=== PATIENT | female | born 1960 | race Caucasian/White ===

== ENCOUNTER 2018-08-12 08:37 | Observation (INO) | payer OTHER ==
[2018-08-12] MEDS ORDERED: NS 1,000 ML IV ONE ×2 (08:51→10:37)
[2018-08-12] MEDS ORDERED: PROMETHAZINE HCL 25 MG/ML INJ IVP ONE (08:51)
[2018-08-12] MEDS ORDERED: KETOROLAC 30 MG/1 ML SDV IVP ONE (08:51)
--- NOTE | 2018-08-12 08:51 | EDPHY ---
H & P Stated Complaint: r flank and rlq abd pain x 4 days Time Seen by Provider: 08/12/18 08:48 HPI/ROS: HPI: This is a 58-year-old female who presents with Chief Complaint: r flank and rlq abd pain x 4 days Location: Right flank and right lower quadrant abdominal Quality: Pain Duration: 4 days Signs and Symptoms: no fever, + nausea, no vomiting, no hematemesis, no blood in stool, no abdominal bloating, no diarrhea, no back pain, no urinary symptoms , no vaginal bleeding/discharge, no indigestion, no chest pain, no shortness of breath Timing: Worsening Severity: Moderate Context: Patient has a history of pancreatitis, postmenopausal, presents with for 4 day history of right flank pain and then suddenly last night around 9:00 p.m. moved to the right lower quadrant. She reports that this morning it has become constant, severe, sharp in nature. She complains of nausea but has had no vomiting or diarrhea or fevers. Her last meal was evening. She drink water yesterday and had some water for breakfast this morning. No history of kidney stones. Denies urinary symptoms including urinary frequency, urinary hesitancy, hematuria. Had a bowel movement yesterday. Passing flatus. Modifying Factors: None Comment: ROS: A comprehensive 10 system review of systems is otherwise negative aside from elements mentioned in the history of present illness. MEDICAL/SURGICAL/SOCIAL HISTORY: Medical history: Pancreatitis, depression, postmenopausal Surgical history: Splenectomy Social history: Never smoked. Family history noncontributory. CONSTITUTIONAL: Nontoxic appearing middle-aged white female, awake and alert, no obvious distress HEENT: Atraumatic and normocephalic, PERRL, EOMI. Nares patent; no rhinorrhea; no nasal mucosal edema. Tympanic membranes clear. Oropharynx clear, no exudate and moist pink mucosa. Airway patent. No lymphadenopathy. No meningismus. Cardiovascular: Normal S1/S2, regular rate, regular rhythm, without murmur rub or gallop. PULMONARY/CHEST: Symmetrical and nontender. Clear to auscultation bilaterally. Good air movement. No accessory muscle usage. ABDOMEN: Soft, nondistended, moderate right lower quadrant tenderness, no rebound, + guarding, no peritoneal signs, no masses or organomegaly. No CVAT. Bowel sounds heard x4 quadrants EXTREMITIES: 2/2 pulses, strength 5/5, no deformities, no clubbing, no cyanosis or edema. NEUROLOGICAL: no focal neuro deficits. GCS 15. SKIN: Warm and dry, no erythema. no rash. Good capillary refill. Source: Patient Exam Limitations: No limitations - Personal History Current Tetanus Diphtheria and Acellular Pertussis (TDAP): Yes - Medical/Surgical History Hx Asthma: No Hx Chronic Respiratory Disease: No Hx Diabetes: No Hx Cardiac Disease: No Hx Renal Disease: No Hx Cirrhosis: No Hx Alcoholism: No Hx HIV/AIDS: No Hx Splenectomy or Spleen Trauma: No Other PMH: PANCREATITIS - Social History Smoking Status: Never smoked Constitutional: Initial Vital Signs Temperature (C) 36.9 C 08/12/18 08:42 Heart Rate 88 08/12/18 08:42 Respiratory Rate 18 08/12/18 08:42 Blood Pressure 186/109 H 08/12/18 08:42 O2 Sat (%) 91 L 08/12/18 08:42 O2 Delivery Mode Room Air Allergies/Adverse Reactions: Sulfa (Sulfonamide Antibiotics) Allergy (Verified 08/12/18 08:40) Home Medications: Medication Instructions Recorded ESCITALOPRAM OXALATE [Lexapro] 5 mg PO 03/07/11 LORazepam [Ativan] 2 mg 03/07/11 Medical Decision Making - Diagnostics Imaging Results: Imaging Impressions Abdomen CT 08/12/18 08:51 Impression: 1. 9 mm right UPJ calculus with associated moderate hydronephrosis. 2. Aortic atherosclerosis without aneurysm. 3. Prior splenectomy. Results called to Alida Barber PA-C, at 10:40 PM. ED Course/Re-evaluation: Vital signs reviewed and show O2 sats 91% on room air. No respiratory distress. IV access and laboratory studies obtained. Urinalysis and CT abdomen and pelvis scan with contrast ordered Given 1 L normal saline, IV Toradol 30 mg, IV promethazine 12.5 mg 0924: Urinalysis shows 1+ blood, trace LE, RBCs 5-10, WBC 3-5 0930: Labs reviewed. WBC 13.56 K, H&H stable, platelets 439 K. No signs of MAGALI /elevated LFTs/electrolyte imbalance/pancreatitis/. 1020: Called by lab that qualitative serum HCG is positive. Patient is postmenopausal. Suspect lab error. Serum HCG quantitative 5.38 1040: Called by Radiology who advised that CT abdomen and pelvis scan shows no signs of appendicitis. 9 mm stone at the right UPJ junction with moderate hydronephrosis. Creatinine 0.9 Reassessed patient who reports pain is still moderate in nature and she has to urinate. P.o. Flomax, IV Dilaudid 1 mg and IV Zofran 4 mg given 1040: ED decision to consult Urology. Spoke with Dr. Colmenares, who kindly agrees to consult on patient and likely place stent this afternoon. Patient remains NPO. Spoke with hospitalistDr. Das who kindly agrees to admit the patient. This patient was seen under the supervision of my secondary supervising physician. I evaluated care for this patient independently. Discussed this patient with Dr. Latif. Differential Diagnosis: Abdominal pain including but not limited to appendicitis, cholecystitis, gastritis and urinary tract infection. Flank pain including but not limited to musculoskeletal causes, kidney stone, pyelonephritis, shingles, and intra-abdominal causes such as diverticulitis and appendicitis. - Data Points Laboratory Results: Laboratory Results 08/12/18 08:45 08/12/18 08:45 08/12/18 08/12/18 08/12/18 08:45 08:45 08:45 WBC RBC Hgb Hct MCV MCH MCHC RDW Plt Count MPV Neut % (Auto) Lymph % (Auto) [place] % (Auto) Eos % (Auto) Baso % (Auto) Nucleat RBC Rel Count Absolute Neuts (auto) Absolute Lymphs (auto) Absolute Monos (auto) Absolute Eos (auto) Absolute Basos (auto) Absolute Nucleated RBC Immature Gran % Immature Gran # Sodium Potassium Chloride Carbon Dioxide Anion Gap BUN Creatinine Estimated GFR Glucose Calcium Total Bilirubin Conjugated Bilirubin Unconjugated Bilirubin AST ALT Alkaline Phosphatase Total Protein Albumin Lipase Beta HCG, Qual POSITIVE Beta HCG, Quant 5.38 mIU/mL H mIU/mL (0.00-4.83) Urine Color YELLOW Urine Appearance CLEAR Urine pH 5.0 (5.0-7.5) Ur Specific [place] 1.015 (1.002-1.030) Urine Protein NEGATIVE (NEGATIVE) Urine Ketones NEGATIVE (NEGATIVE) Urine Blood 1+ H (NEGATIVE) Urine Nitrate NEGATIVE (NEGATIVE) Urine Bilirubin NEGATIVE (NEGATIVE) Urine Urobilinogen NEGATIVE EU EU (0.2-1.0) Ur Leukocyte Esterase TRACE H (NEGATIVE) Urine RBC 5-10 /hpf H /hpf (0-3) Urine WBC 3-5 /hpf H /hpf (0-3) Ur Epithelial Cells TRACE /lpf /lpf (NONE-1+) Urine Mucus TRACE /lpf /lpf (NONE-1+) Urine Glucose NEGATIVE (NEGATIVE) 08/12/18 08/12/18 08:45 08:45 WBC 13.56 10^3/uL H 10^3/uL (3.80-9.50) RBC 4.77 10^6/uL 10^6/uL (4.18-5.33) Hgb 14.9 g/dL g/dL (12.6-16.3) Hct 44.0 % % (38.0-47.0) MCV 92.2 fL fL (81.5-99.8) MCH 31.2 pg pg (27.9-34.1) MCHC 33.9 g/dL g/dL (32.4-36.7) RDW 13.8 % % (11.5-15.2) Plt Count 439 10^3/uL H 10^3/uL (150-400) MPV 10.5 fL fL (8.7-11.7) Neut % (Auto) 67.6 % % (39.3-74.2) Lymph % (Auto) 19.9 % % (15.0-45.0) [place] % (Auto) 10.7 % % (4.5-13.0) Eos % (Auto) 0.4 % L % (0.6-7.6) Baso % (Auto) 1.2 % % (0.3-1.7) Nucleat RBC Rel Count 0.0 % % (0.0-0.2) Absolute Neuts (auto) 9.16 10^3/uL H 10^3/uL (1.70-6.50) Absolute Lymphs (auto) 2.70 10^3/uL 10^3/uL (1.00-3.00) Absolute Monos (auto) 1.45 10^3/uL H 10^3/uL (0.30-0.80) Absolute Eos (auto) 0.06 10^3/uL 10^3/uL (0.03-0.40) Absolute Basos (auto) 0.16 10^3/uL H 10^3/uL (0.02-0.10) Absolute Nucleated RBC 0.00 10^3/uL 10^3/uL (0-0.01) Immature Gran % 0.2 % % (0.0-1.1) Immature Gran # 0.03 10^3/uL 10^3/uL (0.00-0.10) Sodium 139 mEq/L mEq/L (135-145) Potassium 4.6 mEq/L mEq/L (3.3-5.0) Chloride 101 mEq/L mEq/L (97-110) Carbon Dioxide 27 mEq/l mEq/l (22-31) Anion Gap 11 mEq/L mEq/L (6-14) BUN 11 mg/dL mg/dL (7-23) Creatinine 0.9 mg/dL mg/dL (0.6-1.0) Estimated GFR > 60 Glucose 103 mg/dL H mg/dL (70-100) Calcium 9.8 mg/dL mg/dL (8.5-10.4) Total Bilirubin 0.6 mg/dL mg/dL (0.1-1.4) Conjugated Bilirubin 0.2 mg/dL mg/dL (0.0-0.5) Unconjugated Bilirubin 0.4 mg/dL mg/dL (0.0-1.1) AST 23 IU/L IU/L (14-46) ALT 20 IU/L IU/L (9-52) Alkaline Phosphatase 86 IU/L IU/L (38-126) Total Protein 8.2 g/dL g/dL (6.3-8.2) Albumin 4.5 g/dL g/dL (3.5-5.0) Lipase 240 IU/L IU/L (23-300) Beta HCG, Qual Beta HCG, Quant Urine Color Urine Appearance Urine pH Ur Specific [place] Urine Protein Urine Ketones Urine Blood Urine Nitrate Urine Bilirubin Urine Urobilinogen Ur Leukocyte Esterase Urine RBC Urine WBC Ur Epithelial Cells Urine Mucus Urine Glucose Medications Given: Discontinued Medications Sodium Chloride (Ns) 1,000 mls @ 0 mls/hr IV EDNOW ONE; Wide Open PRN Reason: Protocol Stop: 08/12/18 08:52 Last Admin: 08/12/18 08:58 Dose: 1,000 mls Ketorolac Tromethamine (Toradol) 30 mg IVP EDNOW ONE Stop: 08/12/18 08:52 Last Admin: 08/12/18 09:00 Dose: 30 mg Promethazine HCl (Phenergan) 12.5 mg IVP EDNOW ONE Stop: 08/12/18 08:52 Last Admin: 08/12/18 08:59 Dose: 12.5 mg Departure - Departure Disposition: [facility] Inpatient Acute Clinical Impression: Ureterolithiasis, Renal colic on right side, Hydronephrosis due to obstruction of ureter Condition: Fair
[2018-08-12 09:16] LABS: PLATELET COUNT 439 10^3/uL (150-400)
[2018-08-12] MEDS ORDERED: IOPAMIDOL (ISOVUE-300) 100 ML BTL ONE (09:18)
[2018-08-12] MEDS ORDERED: TAMSULOSIN HCL 0.4 MG CAP PO ONE (10:37)
[2018-08-12] MEDS ORDERED: HYDROmorphONE/DILAUDID 2 MG/ML INJ IVP ONE (10:37)
[2018-08-12] MEDS ORDERED: ONDANSETRON 4 MG/2 ML VIAL IVP ONE (10:39)
[2018-08-12] MEDS ORDERED: ACETAMINOPHEN 325 MG TAB PO PRN (11:26)
[2018-08-12] MEDS ORDERED: HYDROCODONE/APAP 5/325 TAB PO PRN (11:26)
[2018-08-12] MEDS ORDERED: ONDANSETRON DISINTEGRATING 4 MG TAB PO PRN (11:26)
[2018-08-12] MEDS ORDERED: PROMETHAZINE HCL 25 MG/ML INJ IVP PRN (11:26)
[2018-08-12] MEDS ORDERED: LORazepam 0.5 MG TAB PO PRN (11:28)
[2018-08-12] MEDS ORDERED: NS 1,000 ML IV SCH (11:30)
[2018-08-12] MEDS ORDERED: hydrALAZINE 20 MG/ML VIAL IVP ONE (11:46)
[2018-08-12] MEDS ORDERED: hydrALAZINE 20 MG/ML VIAL ONE (11:49)
[2018-08-12] MEDS: HYDROmorphONE/DILAUDID 1 MG/ML INJ IVP PRN ×3 (12:38→20:55)
[2018-08-12] MEDS: ONDANSETRON 4 MG/2 ML VIAL IVP PRN ×2 (12:39→20:56)
[2018-08-12] MEDS: oxyCODONE IR 5 MG TAB PO PRN (14:25)
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
[2018-08-12] MEDS ORDERED: ESCITALOPRAM OXALATE 10 MG TAB PO SCH (18:30)
[2018-08-13] MEDS: oxyCODONE IR 5 MG TAB PO PRN (00:17)
[2018-08-13] MEDS: HYDROmorphONE/DILAUDID 1 MG/ML INJ IVP PRN ×2 (00:57→05:08)
[2018-08-13 05:03] LABS: PLATELET COUNT 393 10^3/uL (150-400)
[2018-08-13] MEDS: ONDANSETRON 4 MG/2 ML VIAL IVP PRN (05:08)
[2018-08-13] MEDS ORDERED: IOPAMIDOL (ISOVUE-M 300) 15 ML VIAL ONE ×2 (07:17→08:42)
[2018-08-13] MEDS ORDERED: LIDOCAINE 2% JELLY 20 ML (UROJECT) ONE (07:17)
[2018-08-13] MEDS ORDERED: MIDAZOLAM 2 MG/2 ML VIAL IVP ONE (07:55)
--- NOTE | 2018-08-13 07:55 | PDANEPAE ---
ANE Past Medical History - Cardiovascular History Hx Hypertension: No Hx Arrhythmias: No Hx Chest Pain: No Hx Coronary Artery / Peripheral Vascular Disease: No Hx CHF / Valvular Disease: No Hx Palpitations: No - Pulmonary History Hx COPD: No Hx Asthma/Reactive Airway Disease: No Hx Recent Upper Respiratory Infection: No Hx Oxygen in Use at Home: No Hx Sleep Apnea: No Sleep Apnea Screening Result - Last Documented: Negative - Endocrine History Hx Diabetes: No Hypothyroid: No Hyperthyroid: No Obesity: no ANE Review of Systems Review of Systems: ANE Patient History - Allergies Allergies/Adverse Reactions: Sulfa (Sulfonamide Antibiotics) Allergy (Unknown, Verified 08/12/18 11:13) Other-Enter Comments - Home Medications Home Medications: Escitalopram Oxalate [Lexapro] 20 mg PO DAILY 08/12/18 [Last Taken Unknown] Fluticasone Nasal [Flonase Nasal [place] (RX)] 1 sprays EACHNARE DAILY 08/12/18 [ Last Taken Unknown] LORazepam [Ativan 2 mg tab] 0.5 - 1 tab PO BID PRN 08/12/18 [Last Taken Unknown] Ondansetron Odt [Zofran Odt 4 mg (*)] 4 mg PO Q4 PRN 08/12/18 [Last Taken Unknown] - NPO status NPO Since - Liquids (Date): 08/12/18 NPO Since - Liquids (Time): 00:00 NPO Since - Solids (Date): 08/12/18 NPO Since - Solids (Time): 00:00 - Smoking Hx Smoking Status: Never smoked - Alcohol Use Alcohol Use: Rarely ANE Labs/Vital Signs - Labs Result Diagrams: 08/13/18 04:08 08/13/18 04:08 - Vital Signs Blood Pressure: 140/80 Heart Rate: 80 Respiratory Rate: 16 O2 Sat (%): 96 Height: 154.94 cm Weight: 63.4 kg ANE Physical Exam - Airway Neck exam: FROM Mallampati Score: Class 2 Mouth exam: normal dental/mouth exam - Pulmonary Pulmonary: no respiratory distress - Cardiovascular Cardiovascular: regular rate and rhythym - ASA Status ASA Status: II ANE Anesthesia Plan Anesthesia Plan: GA w LMA
[2018-08-13] MEDS ORDERED: PROPOFOL 200 MG/20 ML VIAL ONE ×2 (08:01→08:03)
[2018-08-13] MEDS ORDERED: fentaNYL 100 MCG/2 ML INJ ONE (08:04)
[2018-08-13] MEDS ORDERED: CEFAZOLIN 2 GM/DEXTROSE/100 ML BAG IV ONE (08:06)
[2018-08-13] MEDS ORDERED: MIDAZOLAM 2 MG/2 ML VIAL ONE (08:10)
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
[2018-08-13] MEDS ORDERED: ceFAZolin 2 GM/DEXTROSE 100 ML IV ONE (08:30)
[2018-08-13] MEDS ORDERED: ONDANSETRON 4 MG/2 ML VIAL ONE (09:00)
[2018-08-13] MEDS ORDERED: ePHEDrine SULFATE 25 MG/5 ML SYR ONE (09:00)
[2018-08-13] MEDS ORDERED: FLUTICASONE NASAL 120 SPRAYS/16 GM MDI EACHNARE SCH (09:00)
[2018-08-13] MEDS ORDERED: TAMSULOSIN HCL 0.4 MG CAP PO SCH (09:00)
[2018-08-13] MEDS ORDERED: DEXAMETHASONE 4 MG/ML VIAL ONE ×2 (09:01)
[2018-08-13] MEDS ORDERED: LIDOCAINE 2% 2 ML INJ ONE (09:01)
[2018-08-13] MEDS ORDERED: NALOXONE HCL 0.4 MG/ML INJ IVP PRN (09:15)
[2018-08-13] MEDS ORDERED: fentaNYL 100 MCG/2 ML INJ IVP PRN (09:15)
[2018-08-13] MEDS ORDERED: NS 500 ML IV PRN (09:15)
--- NOTE | 2018-08-13 09:43 | POSTOPPROG ---
Post Op Note Date of Operation: 08/13/18 Surgeon: Jackelin Colmenares Anesthesia: GET(General Endotracheal) Pre-op Diagnosis: right ureteral stone Post-op Diagnosis: same Indication: right ureteral stone, pain Procedure: cysto,RURS, laser lithotripsy, stent, RGP, fluoro, basket ext stone Findings: right ureteral stone Inf/Abcess present in the surg proc area at time of surgery?: No EBL: Minimal Complications: none, pt tolerated well Specimen(s): stone
--- NOTE | 2018-08-13 10:03 | POSTANESTH ---
Post Anesthetic Evaluation Cardiovascular Status: Normal, Stable Respiratory Status: Normal, Stable Level of Consciousness/Mental Status: Can Participate in Eval Pain Control: Adequate, Prn Tx Ordered Nausea/Vomiting Control: Adequate, Prn Tx Ordered Complications Possibly Related to Anesthesia: None Noted
[2018-08-13] MEDS ORDERED: KETOROLAC 30 MG/1 ML SDV ONE (10:14)
[2018-08-13] MEDS ORDERED: KETOROLAC 30 MG/1 ML SDV IVP ONE (10:15)
--- NOTE | 2018-08-13 10:59 | ASMTCMCOM ---
CM Note CM Note Notes: Chart reviewed for discharge planning purposes. 58 year old female admitted via ED with c/o r lower abdominal pain. Per CT she is diagnosed with a kidney stone. Likely no needs at discharge. CM to follow. Plan: Likely independent when medically cleared. Date Signed: 08/13/2018 10:58 AM Electronically Signed By:Marcie Tran RN
--- NOTE | 2018-08-13 11:19 | GOP ---
DATE OF OPERATION: 08/13/2018 SURGEON: Jackelin Colmenares MD ANESTHESIA: General. PREOPERATIVE DIAGNOSIS: Right ureteral stone, pain. POSTOPERATIVE DIAGNOSIS: Right ureteral stone, pain. PROCEDURE PERFORMED: Cystoscopy, right ureteroscopy, laser lithotripsy, stent, intraoperative fluoro scopy, retrograde pyelogram, basket extraction of stone. Indication: Right ureteral stone pain. FINDINGS: SPECIMENS: Stone. ESTIMATED BLOOD LOSS: Minimal. INDICATIONS: The patient presented to the ER yesterday for symptomatic obstructing right ureteral st one and she elected to have treatment of the stone. We discussed the rationale, risks, and benefits of the procedure. The risks, included bleeding; infection; pain; injury to the urethra or the bladde r, the ureter; risk of ureteral stricture, inability to gain access to the stone for treatment; inabi lity to place a stent and need for subsequent procedures. She understood these risks and agreed to p roceed. DESCRIPTION OF PROCEDURE: The patient was taken back to the cystoscopy suite, placed on the cystosco py table in a supine position. General anesthesia induced without complication. Time-out performed and core measures satisfied, including placement of a Jim Hugger, SCDs, and administration of 2 g An cef antibiotic. She was brought to the end of the table, placed in a dorsal lithotomy position. All pressure points padded. Genitalia draped and prepped in the standard surgical fashion with Betadine . Rigid cystoscope easily cannulated the urethral meatus and was advanced atraumatically into the bladd er. Lipscomb cystoscopy performed and there were no lesions, cellules, trabeculations, masses, or other a bnormalities. The right and left ureteral orifices were in their expected anatomical position. Attention focused on the right ureteral orifice where a 5-Persian open-ended catheter easily cannulate d the right urethral meatus over a Glidewire, and a retrograde pyelogram was performed showing a fill ing defect about the top of L4 and a hydronephrotic renal pelvis. Then, two 0.035 Glidewires were ad vanced with fluoroscopic guidance and there was some hesitation of the wire at the same area where I felt the filling defect was, which would be consistent with the stone. I then advanced a 12/14-Frenc h ureteral access sheath over the wire with fluoroscopic guidance up to the level of where I felt the filling defect was. I advanced an urethroscope into the sheath and examined the ureter. There was no stone, and I went up into the renal pelvis and the stone had been pushed into the renal pelvis. I then lasered the stone into dust and basketable tubal fragments with a 200 micron laser. Fragments that were larger were basket extracted. What remained was just dust. I did lipscomb nephroscopy and ther e were no other fragments to be removed and what remained was just dust. A retrograde pyelogram was then performed and the scope was removed with the sheath together leaving our safety wire in place. The ureter when I removed the sheath was normal. There was some edema whe re the stone obviously had been sitting in the proximal ureter, but otherwise, the ureter looked heal thy without any injury. I then advanced a 6-Persian multivariable stent with fluoroscopic and cystosc opic guidance into the right collecting system. There was a nice curl in the renal pelvis, a nice cu rl in the bladder. Her bladder was emptied. Lidocaine jelly placed per urethra, and at this point, the procedure considered complete. She was woken from anesthesia and transferred to PACU in good con dition. COMPLICATIONS: None. /[id number]/MODL
[2018-08-13] MEDS ORDERED: MAGNESIUM HYDROXIDE 30 ML UDCUP PO PRN (11:37)
[2018-08-13] MEDS ORDERED: BISACODYL 10 MG SUPP PR PRN (11:37)
[2018-08-13] MEDS ORDERED: LACTULOSE 20 GM/30 ML UDCUP PO PRN (11:37)
[2018-08-13] MEDS ORDERED: POLYETHYLENE GLYCOL 3350 17 GM PKT PO PRN (11:37)
[2018-08-13 12:22] VITALS: BP 145/77
--- NOTE | 2018-08-13 14:07 | PDDCSUM ---
Discharge Summary Discharge Summary: Date of Admission: 08/12/2018 Date of Discharge: 08/13/2018 Consults: Urology Procedures: Cystosopcy, R ureteroscopy, laser lithotripsy, stent placement Followup: Urology for stent removal in 1 week Hospital Course Problem List: Hydronephrosis due to obstruction of ureter (Acute) Renal colic on right side (Acute) Ureterolithiasis (Acute) 58 yo F with no significant pmh presenting with right flank pain found to be 2/ 2 obstructing stone # ureterolithiasis: patient with 9mm UPJ stone on the right with associated moderate hydronephrosis, urology wasconsulted s/p OR where stone was removed and stent placed. Patient to followup with urology in 1 week which they have arranged # hydronephrosis: 2/2 above, urology to consult and treat # leukocytosis: without e/o infection otherwise, likely stress response, ua does not appear c/w infection, given abx periprocedurally Time spent on discharge was >35 minutes with >50% of time spent on patient education and counseling
--- NOTE | 2018-08-13 14:29 | ASMTLACE ---
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
--- NOTE | 2018-08-13 14:31 | ASMTCMCOM ---
CM Note CM Note Notes: Patient plan of care reviewed in rounds. S/P kidney stone removal and stent. Doing well. Home independently with family support. CM available should other needs arise. Plan: Home no needs, Date Signed: 08/13/2018 02:31 PM Electronically Signed By:Marcie Tran RN
[2018-08-13] MEDS ORDERED: ESCITALOPRAM OXALATE 10 MG TAB PO SCH (18:00)
[2018-08-13] MEDS ORDERED: SENNOSIDES/DOCUSATE SODIUM TAB PO SCH (21:00)
== END 2018-08-13 14:42 | disposition home or self-care (01) ==
LOC: F1N 12:09
PROVIDERS: ADMIT Internal Medicine; ATTEND Internal Medicine
DX: N13.2 Hydronephrosis with renal and ureteral calculous obstruction (principal); E86.9 Volume depletion, unspecified; D72.829 Elevated white blood cell count, unspecified; F32.9 Major depressive disorder, single episode, unspecified; I70.0 Atherosclerosis of aorta; Z87.19 Personal history of other diseases of the digestive system; Z88.2 Allergy status to sulfonamides; Z78.0 Asymptomatic menopausal state; Z90.81 Acquired absence of spleen
CPT/HCPCS: 52352; 52356; 74177; 76000; 96361; 96374; 96375; 99285; C1758; C1769; C1894; G0378; 82365-90; C2625; J0360; J0690; J1100; J1170; J1885; J2250; J2405; J2550; J2704; J3010; Q9967

== ENCOUNTER → 2018-11-27 | Outpatient (CLI) | payer OTHER | LOC: FIMAGING 13:07 | PROVIDERS: ATTEND Family Medicine | DX: J40 Bronchitis, not specified as acute or chronic (principal) ==

== ENCOUNTER → 2018-12-18 | Outpatient (CLI) | payer OTHER ==
--- NOTE | 2018-12-18 15:50 | ECHO ---
[email or web address] [address] [address] Main: [phone] Fax: Transthoracic Echocardiogram Name: FAUZIA DURANT MR#: [id number] Study Date: 12/18/2018 Study Time: 02:20 PM Date of : 1960 Age: 58 year(s) Height: 154.9 cm (61 in.) Weight: 61.69 kg (136 lb.) BSA: 1.6 m2 Gender: Female Examination: ECH Indication: Hypertensive Crisis Image Quality: Contrast: Requested by: Davis Love BP: 220 mmHg/140 mmHg Heart Rate: Rhythm: Normal sinus rhythm Indication: Hypertensive Crisis Procedure Staff Supervisor Pipeline: Edmund Espinoza RDCS Reading Physician: Jasmeet Mast MD Requesting Provider: Conclusions: Normal size left ventricle. No LV hypertrophy. Normal global systolic LV function. EF is 64 %. The mitral valve is normal in appearance and function. There is no significant mitral valve regurgitation. No mitral stenosis is present. The aortic valve is tri-leaflet. The aortic valve is normal in appearance and function. No pericardial effusion. Measurements: Chambers Valvular Assessment AV/MV Valvular Assessment TV/PV Normal Normal Normal Name Value Range Name Value Range Name Value Range Ao [place] (MM): 3.3 cm (2.2 cm-3.7 AV Vmax: 1.29 m/s (1 m/s-1.7 TR Vmax: 2.58 mm/s ( - ) cm) m/s) TR PGmax: 27 mmHg ( - ) IVSd (2D): 1.1 cm (0.6 cm-1.1 AV maxP mmHg ( - ) syst. PAP: 32 mmHg ( - ) cm) LVOT Vmax: 0.71 m/s (0.7 m/s-1.1 PV Vmax: 0.77 m/s (0.6 m/s-0.9 LVDd (2D): 4.3 cm (3.9 cm-5.3 m/s) m/s) cm) MV E Vmax: 0.60 m/s ( - ) PV PGmax: 2 mmHg ( - ) LVDs (2D): 2.8 cm (2.1 cm-4 MV A Vmax: 0.78 m/s ( - ) cm) MV E/A: 0.77 ( - ) LVPWd (2D): 1.0 cm ( - ) LVEF (2D): 64 (>=54 %) Continued Measurements: Chambers Valvular Assessment AV/MV Valvular Assessment TV/PV Patient: FAUZIA DURANT Study Date: 12/18/2018 Page 1 of 2 02:20 PM Name Value Name Value Name Value LADs Lon.1 cm MV E' Septal: 0.07 m/s CVP (est.): 5 mmHg LA Area: 10.9 cm2 MV E/E' Septal: 8.80 LA Volume: 27 ml MV E/E' Lateral: 10.70 LA Volume Index: 16.9 ml/m2 Findings: Left Ventricle: Normal size left ventricle. No LV hypertrophy. Normal global systolic LV function. EF is 64 %. No regional wall motion abnormality. Grade 1 diastolic dysfunction (abnormal relaxation). Right Ventricle: Normal size right ventricle. Normal RV function. Left Atrium: The left atrium is normal in size. Right Atrium: The right atrium is normal in size. Mitral Valve: The mitral valve is normal in appearance and function. There is no significant mitral valve regurgitation. No mitral stenosis is present. Aortic Valve: The aortic valve is tri-leaflet. The aortic valve is normal in appearance and function. Tricuspid Valve: Trivial tricuspid valve regurgitation. The pulmonary artery pressure is normal. Pulmonic Valve: The pulmonic valve is normal in appearance and function. Aorta: The aorta is normal. Pericardium: No pericardial effusion. (No Signature Object) Patient: FAUZIA DURANT Study Date: 12/18/2018 Page 2 of 2 02:20 PM [id number]
== END ==
LOC: FCP 13:48
PROVIDERS: ATTEND Internal Medicine Cardiovascular Disease
DX: R55 Syncope and collapse (principal); R42 Dizziness and giddiness; I11.9 Hypertensive heart disease without heart failure; I43 Cardiomyopathy in diseases classified elsewhere